=== PATIENT | male | born 1990 | race Caucasian/White ===

== ENCOUNTER → 2023-07-25 10:05 | Outpatient (REF) | payer OTHER, SELFPAY | LOC: RAD 10:05 | PROVIDERS: ATTENDING PHYSICIAN Surgery Vascular Surgery | DX: Z01.818 Encounter for other preprocedural examination (principal) | CPT/HCPCS: 93985 ==

== ENCOUNTER 2023-07-30 10:03 | Day surgery (SDC) | payer OTHER, SELFPAY ==
[2023-07-30] VITALS (20 sets, daily range): BP systolic 141–209; BP diastolic 75–124; BMI 29.1
[2023-07-30 10:34] LABS: Hematocrit 33.5 % (39.0-52.0); Hemoglobin 10.9 g/dL (13.0-18.0); Mean Corp Hgb Conc. 32.5 g/dL (33.0-37.0); Mean Corpuscular Hgb 29.9 pg (27.0-31.0); Mean Corpuscular Volume 91.8 fL (80.0-94.0); Mean Platelet Volume 10.4 fL (7.4-10.4); Platelet Count 251 10^3/uL (130-400); Red Blood Cell Count 3.65 10^6/uL (4.70-6.10); Red Cell Dist. Width 11.7 % (11.5-14.5); White Blood Cell Count 7.6 10^3/uL (4.8-10.8)
[2023-07-30 10:44] LABS: INR 1.14; PT 14.6 Sec (11.4-14.6)
[2023-07-30 10:45] LABS: APTT 40.8 Sec (23.4-35.0)
[2023-07-30] MEDS: PERIDEX 0.12% ORAL RINSE 15 ML PO (11:08)
[2023-07-30] MEDS: BACTROBAN NASAL 1 GRAM NASAL (11:08)
[2023-07-30 11:53] LABS: Blood Urea Nitrogen 67 mg/dl (9-20); Estimated Creatinine Clearance 22 ml/min; Glucose 146 mg/dl (70-99); Sodium 137 mmol/L (135-145); eGFR 13.26
[2023-07-30 11:54] LABS: Calcium 8.5 mg/dl (8.4-10.2); Carbon Dioxide 19 mmol/L (22-30); Chloride 110 mmol/L (98-107); Potassium 5.7 mmol/L (3.5-5.1)
[2023-07-30] MEDS: NSS 500 IV (12:16)
--- NOTE | 2023-07-30 13:18 | W.SUR.PREOP ---
Pre-Operative Surgical Note
-
I have examined this patient prior to the performance of the scheduled procedure.
The patient's condition is unchanged from the time of the current History and
Physical and the patient is able to undergo the scheduled procedure.
--- NOTE | 2023-07-30 15:49 | W.SUR.POST ---
Surgical Immediate Post Op
Note
Pre Op Diagnosis: ESRD
Post Op Diagnosis: ESRD
Procedure Performed: Left radiocephalic AV fistula creation
Primary Surgeon: Zeke Spaulding MD
physiotherapist's assistant: RICARDO Obrien
Anesthesia: GETA
Estimated Blood Loss: 5 ml
Fluids: See anesthesia flowsheet
Drains/Shunts: N/A
Specimens/Cultures: N/A
Doppler/Duplex/Angio (Y/N): Y, Doppler
Complications: None
Operative Findings: Positive thrill in fistula following case
--- NOTE | 2023-07-30 16:00 | OR.RPT ---
Operative Report
Operative Report
PROCEDURE DATE: 07/30/2023
Preoperative diagnosis: End-stage renal disease approaching hemodialysis
Postoperative diagnosis: Same
Procedure: Left upper extremity radiocephalic arteriovenous fistula creation
Surgeon: aJsson
Retail Banker: Laxmi, required for all aspects of procedure including assistance with traction/countertraction, following of suture line, assistance with closure.
Complications: None
Anesthesia: General
Indications for procedure:
End-stage renal disease approaching the need for hemodialysis. Required more permanent access. Risk/benefits/alternatives of fistula creation were discussed with the patient.
He understood all wish to proceed. Is [id number] and therefore we elected to attempt the left side. Vein mapping was marginal. However, vein mapping performed by myself in the operating room. Patient was hoping for distal fistula
(wrist) if doable. Given his young age he felt this was reasonable.
Description of procedure:
Patient was identified brought to the operating room placed on the table in supine position. After the induction of anesthesia, I mapped his left upper extremity veins myself with an ultrasound probe. His cephalic vein in the left arm in the upper
arm and in the forearm both appeared very suitable in size while under anesthesia. Therefore I felt a left radiocephalic arteriovenous fistula creation would be reasonable. His left radial artery did appear slightly small on ultrasound in the
operating room. But I felt it was worth attempting nonetheless (and in addition on his formal preoperative vein mapping ultrasound, his radial artery waveforms were normal). After the adequate administration of anesthesia and perioperative
antibiotics he was prepped and draped in the standard surgical fashion. A standard preoperative timeout was undertaken and everybody was in agreement the plan. A longitudinal incision was made distal left forearm/wrist on the radial aspect. This
was carried through skin subcutaneous tissue.
A small lateral subcutaneous flap was raised and the cephalic vein was identified. It was carefully dissected away from surrounding structures take great care to avoid any injury to the structures. Any branches were ligated between silk ties and
then divided. Thus this allowed me to mobilize the vein. It was an excellent sized vein. Once I mobilized the suitable segment, I deepened my dissection in the medial aspect of the incision through the fascial layer. I identified the radial
artery. I carefully dissected away from surrounding structures take great care to avoid any injury to structures. I passed a vessel loop around it proximally and distally. It was a small artery but had a reasonable pulse and was soft. The vessel
loops were double looped but not yet tightened.
Next, I ligated the cephalic vein distally in my field with a silk tie and a clip. I then transected it. I distended the vein under heparinized saline. It distended very well. I passed the dilators using 2.5 mm, followed by 3 mm dilators which
passed without any difficulty whatsoever. I marked the anterior surface of the vein under distention to avoid any kinking or twisting.
Next, I gave the patient 3000 units of intravenous heparin. I tightened my double looped Vesseloops on the artery proximally and distally. I made an arteriotomy with a [place] blade and extended using a micro [place] scissor. I then spatulated the
cephalic vein and sewed an end to side anastomosis using a running 6-0 Prolene suture. I backbled the artery and then completed and tied down my suture line. Next I released my proximal vessel loop. Finally I released my outflow vessel loop.
There was a reasonable thrill in the fistula. There was an excellent radial pulse in the radial artery at the wrist. At this point I was very satisfied. I irrigated. I achieved and confirmed full hemostasis. I then closed in layers using 3-0
Vicryl deep dermal layer followed by 4 Monocryl subcuticular stitch. Dermabond was applied.
[2023-07-30 16:14] LABS: Glucose - Point of Care 134 mg/dl (70-99)
[2023-07-30 17:40] LABS: Glucose - Point of Care 148 mg/dl (70-99)
[2023-07-30] MEDS: APRESOLINE 5 MG IV ×2 (18:17→18:41)
--- NOTE | 2023-07-30 18:24 | PTCARENOTE ---
Patient bp 200/114 and nauseated sitting at side of bed. Sleepy but arouses to voice commands. ROOM MAID notified and requested to talk to anesthesia. Dr. Poon notified and hydralazine IV ordered. Patient vomiting. Dr. Spaulding notified and instructed
patients SBP must be below 180 in order for discharge. Patient states he feels much better since vomiting. Patient urinated 350mls at bedside.
[2023-07-30] MEDS: COMPAZINE 5 MG IV (18:30)
--- NOTE | 2023-07-30 19:09 | PTCARENOTE ---
BP 173/80. Patient states he feels good to be discharged. ok for discharge. IV d/c patent dressed self and discharged via wheelchair to car. Patient dry heaving in wheelchair but states this happend at home sometimes. Patient instructed to take
BP meds at home and recheck BP tonight.
== END 2023-07-30 19:21 | disposition home or self-care (01) ==
LOC: CATH 10:03
PROVIDERS: ATTENDING PHYSICIAN Surgery Vascular Surgery; OTHER PHYSICIAN Internal Medicine Nephrology
DX: I12.0 Hypertensive chronic kidney disease with stage 5 chronic kidney disease or end stage renal disease (principal); E11.22 Type 2 diabetes mellitus with diabetic chronic kidney disease; N18.6 End stage renal disease; Z99.2 Dependence on renal dialysis; Z79.4 Long term (current) use of insulin
CPT/HCPCS: 36821; 80048; 82962; 85027; 85610; 85730; 86850; 86900; 86901; 93005

== ENCOUNTER → 2023-10-07 15:13 | Outpatient (REF) | payer OTHER, SELFPAY | LOC: RAD 15:13 | PROVIDERS: ATTENDING PHYSICIAN Physician Assistant | DX: I77.0 Arteriovenous fistula, acquired (principal) | CPT/HCPCS: 93990 ==